=== PATIENT | female | born 1950 | race Two or more races ===

== ENCOUNTER 2023-09-26 15:17 | Emergency (ER) | payer OTHER ==
[~2023-09-26] VITALS: Ht 157.5 cm; Wt 79.4 kg
[2023-09-26] MEDS ORDERED: METFORMIN HCL500 MG (16:11)
[2023-09-26] MEDS ORDERED: TOPROL XL25 M1 (16:12)
[2023-09-26] MEDS ORDERED: LEVOTHYROXINE25 MCG (16:12)
[2023-09-26] MEDS ORDERED: DEXAMETHASONE SODIUM PHOSPHATE 4 MG/ML VIAL IM STA (18:56)
[2023-09-26 19:47] LABS: HEMATOCRIT 39.8 % (36.0-45.00); HEMOGLOBIN 13.1 g/dL (12.0-15.00); MEAN CELL VOLUME 91.7 fL (80.00-100.00); MEAN CORPUSCULAR HEMOGLOBIN 30.3 pg (27.00-32.0); PLATELET COUNT 405 K/uL (150-450); RED BLOOD COUNT 4.33 M/uL (4.00-6.00); RED CELL DISTRIBUTION WIDTH 14.8 % (11.5-14.5)
[2023-09-26 19:48] LABS: D DIMER 2.26 MG/L; INR 1.05; PARTIAL THROMBOPLASTIN TIME 29.3 SECONDS (22.0-34.0)
[2023-09-26 20:12] LABS: BILIRUBIN TOTAL 0.57 mg/dL (0.3-1.2); CALCIUM 10.5 mg/dL (8.5-10.1); CREATININE SERUM 1.33 mg/dL (0.55-1.02); GFR 39.22; POTASSIUM 4.62 mEq/L (3.5-5.1); TOTAL PROTEIN 8.6 gm/dL (6.4-8.2)
[2023-09-26 20:18] LABS: ALBUMIN 3.5 gm/dL (3.4-5.0); GLOBULINA 5.1 G/DL (2.4-3.5)
[2023-09-27] MEDS ORDERED: MELOXICAM15 MG PO (01:47)
== END 2023-09-27 01:54 ==
LOC: ER 15:18
PROVIDERS: General Practice
DX: M54.9 Dorsalgia, unspecified (principal); I10 Essential (primary) hypertension; E03.8 Other specified hypothyroidism; E11.9 Type 2 diabetes mellitus without complications; Z79.84 Long term (current) use of oral hypoglycemic drugs
CPT/HCPCS: 36415; 71046; 71250; 93005; 96372; 99284; J1100

== ENCOUNTER → 2025-03-25 07:05 | Outpatient (CLI) | payer OTHER ==
[~2025-03-25 07:05] MED LIST: LEVOTHYROXINE25 MCG; MELOXICAM15 MG PO; METFORMIN HCL500 MG; TOPROL XL25 M1
== END | disposition home or self-care (01) ==
LOC: NUCLEAR 07:00
PROVIDERS: ATTEND Internal Medicine
DX: I20.9 Angina pectoris, unspecified (principal)
CPT/HCPCS: 78452; 93017; A9500

== ENCOUNTER 2025-05-16 08:49 | Outpatient (CLI) | payer OTHER | END 2025-05-16 08:51 | disposition home or self-care (01) | LOC: TOM 08:49 | DX: R19.5 Other fecal abnormalities (principal); K63.89 Other specified diseases of intestine; D01.0 Carcinoma in situ of colon | CPT/HCPCS: 71270; 74178; Q9965 ==

== ENCOUNTER 2025-06-10 07:11 | Outpatient (CLI) | payer OTHER | END 2025-06-10 07:14 | disposition home or self-care (01) | LOC: NUCLEAR 07:11 | PROVIDERS: ATTEND Surgery | DX: C18.7 Malignant neoplasm of sigmoid colon (principal) | CPT/HCPCS: 78815; A9552 ==